=== PATIENT | male | born 1940 | race Caucasian/White ===

== ENCOUNTER 2018-11-09 11:28 | Day surgery (SDC) | payer MEDICARE ==
[~2018-11-09] VITALS: Ht 182.9 cm; Wt 109.4 kg
[~2018-11-09 11:28] MED LIST: ALLO300 PO; ASPI81CH PO; Adult Low Dose81 MG PO; CARV6.25; CARV6.25 PO; COLC.6 PO; ENTRESTO 24 MG1 EACH PO; EZET10-20 PO; EZETIMIBE-SIMV1 EAC1 PO; FENO145 PO; HCTZ; HYDACE5 PO; HYDCHL25 PO; HYDR1TAB94 PO; NYST100SU MT; ONDA4ODT MM; SLO NIACIN; TAMS.4ER PO; UBID10 PO
--- NOTE | 2018-11-09 13:11 | NUR ---
11/09/18 1311 Eduard Ortega 1ST IV ATTEMPT IN RFT UNSUCCESSFUL, CAT 2ND IV ATTEMPT IN LFT UNSUCCESSFUL, ORSCHELI 3RD IV ATTEMPT IN RFT SUCCESSFUL, ORSHEATH
--- NOTE | 2018-11-09 14:39 | NUR ---
11/09/18 1435 Leesa Gomes @[id number] assumed care of pt from [facility] after receiving report
== END 2018-11-09 14:35 | disposition home or self-care (01) ==
LOC: ORSCSDS 11:28
PROVIDERS: Orthopaedic Surgery
PROC: 01N54ZZ Release Median Nerve, Percutaneous Endoscopic Approach (ICD-10-PCS; principal; 2018-11-09 12:30)
DX: G56.02 Carpal tunnel syndrome, left upper limb (principal); I25.10 Atherosclerotic heart disease of native coronary artery without angina pectoris; I10 Essential (primary) hypertension; E66.9 Obesity, unspecified; E78.5 Hyperlipidemia, unspecified; Z68.32 Body mass index [BMI] 32.0-32.9, adult; Z87.891 Personal history of nicotine dependence; Z79.899 Other long term (current) drug therapy; Z79.82 Long term (current) use of aspirin
CPT/HCPCS: J0171; J0690; J2250; J7120

== ENCOUNTER → 2019-07-31 | Outpatient (CLI) | payer MEDICARE ==
[2019-07-31 09:16] LABS: Source, Urine Clean Catch
[2019-07-31 10:10] LABS: Bilirubin, Urine Neg (Neg); Blood, Urine Neg (Neg); Glucose Qualitative, Urine Neg (Neg); Ketones, Urine Neg (Neg); Leukocyte Esterase, Urine Neg (Neg); Nitrite, Urine Neg (Neg); Protein, Urine Neg (Neg); Specific Gravity, Urine 1.015 (1.003-1.022); Urobilinogen, Urine NORM (Normal)
[2019-07-31 10:25] LABS: Appearance, Urine Clear (Clear); Color, Urine Yellow (P-Yellow)
== END | disposition home or self-care (01) ==
LOC: LAB SHORT 09:15 → OLS 09:15
PROVIDERS: Internal Medicine
DX: R31.9 Hematuria, unspecified (principal)
CPT/HCPCS: 81003

== ENCOUNTER 2019-10-16 01:18 | Emergency (ER) | payer MEDICARE ==
[~2019-10-16] VITALS: Ht 182.9 cm; Wt 99.8 kg
[2019-10-16 03:39] LABS: Source, Urine Clean Catch
[2019-10-16 03:43] LABS: Appearance, Urine Hazy (Clear); Bilirubin, Urine Neg (Neg); Blood, Urine 5+ (Neg); Color, Urine Yellow (P-Yellow); Glucose Qualitative, Urine Neg (Neg); Ketones, Urine 1+ (Neg); Leukocyte Esterase, Urine 3+ (Neg); Nitrite, Urine Neg (Neg); Protein, Urine 2+ (Neg); Specific Gravity, Urine 1.015 (1.003-1.022); Urobilinogen, Urine NORM (Normal)
[2019-10-16 03:48] LABS: BASOPHILS ABSOLUTE AUTO 0.04 K/mm3 (0.00-0.23); BASOPHILS PERCENT AUTO 1 % (0-2); EOSINOPHILS ABSOLUTE AUTO 0.05 K/mm3 (0.00-0.68); EOSINOPHILS PERCENT AUTO 1 % (0-6); Hematocrit 48.3 % (37.0-53.0); Hemoglobin 15.8 g/dL (13.5-17.5); IMMATURE GRAN ABSOLUTE AUTO 0.05 K/mm3 (0.00-0.10); IMMATURE GRAN PERCENT AUTO 1 % (0-1); LYMPHOCYTES ABSOLUTE AUTO 0.54 K/mm3 (0.84-5.20); LYMPHOCYTES PERCENT AUTO 6 % (21-46); MONOCYTES ABSOLUTE AUTO 0.16 K/mm3 (0.16-1.47); MONOCYTES PERCENT AUTO 2 % (4-13); Mean Corpuscular HGB 29.8 pg (26.0-34.0); Mean Corpuscular HGB Conc 32.7 g/dL (31.5-36.5); Mean Corpuscular Volume 91 fL (80-100); NEUTROPHILS ABSOLUTE AUTO 7.63 K/mm3 (1.96-9.15); NEUTROPHILS PERCENT AUTO 90 % (41-73); Platelet Count 240 K/mm3 (150-400); RDW Coefficient Variation 14.2 % (11.7-14.2); RDW Standard Deviation 47.8 fL (35.1-46.3); Red Blood Cell Count 5.31 M/mm3 (4.30-5.90); White Blood Cell Count 8.47 K/mm3 (4.00-11.30)
[2019-10-16 03:52] LABS: Bacteria Many /hpf; Red Blood Cells, Urine 0-2 /hpf (0-2); Squamous Epithelial Cells Not Seen /hpf (Few); White Blood Cells, Urine 50-100 /hpf (0-5)
[2019-10-16 04:08] LABS: Alanine Aminotransfer (ALT/SGP 28 U/L (12-78); Albumin, Blood 3.6 g/dL (3.4-5.0); Albumin/Globulin Ratio 1.1 (0.8-1.8); Alk Phos 73 U/L (50-136); Anion Gap 6 mmol/L (6-16); Aspartate Aminotrans (AST/SGOT 17 U/L (12-37); Bilirubin, Total 1.1 mg/dL (0.1-1.0); Blood Urea Nitrogen 17 mg/dL (8-24); Bun/Creatinine Ratio 18.6 (12.0-20.0); CO2, Blood 25 mmol/L (21-32); Calcium, Blood 9.3 mg/dL (8.5-10.1); Chloride, Blood 109 mmol/L (98-108); Creatinine, Blood 0.92 mg/dL (0.60-1.20); Globulin, Blood 3.4 g/dL (2.2-4.0); Glomerular Filtration Rate >60 (60-); Glucose, Blood 126 mg/dL (70-99); Potassium, Blood 4.1 mmol/L (3.5-5.5); Sodium, Blood 140 mmol/L (136-145)
[2019-10-16] MEDS ORDERED: CEFP200 PO (04:37)
== END 2019-10-16 05:37 | disposition home or self-care (01) ==
LOC: ER 01:18
PROVIDERS: Emergency Medicine
DX: N39.0 Urinary tract infection, site not specified (principal); Z88.5 Allergy status to narcotic agent; Z88.1 Allergy status to other antibiotic agents; Z88.8 Allergy status to other drugs, medicaments and biological substances; Z79.82 Long term (current) use of aspirin; Z79.899 Other long term (current) drug therapy; Z79.2 Long term (current) use of antibiotics; I10 Essential (primary) hypertension; Z87.891 Personal history of nicotine dependence
CPT/HCPCS: 36415; 80053; 81001; 85025; 87077; 87086; 87186; 96365; 99284-25; J0696

== ENCOUNTER 2019-12-05 09:36 | Day surgery (SDC) | payer MEDICARE ==
[~2019-12-05] VITALS: Ht 182.9 cm; Wt 97.5 kg
[~2019-12-05 09:36] MED LIST changes: +Aspir 8181 MG PO; +CEFP200 PO; +ENTRESTO 49 MG1 EAC3; +EZETIMIBE-SIMV1 EAC4 PO; +FLOMAX0.4 MG PO; +Fibercon625 MG PO; +MAGNESIUM OXID500 MG PO
--- NOTE | 2019-12-05 10:29 | NUR ---
12/05/19 1029 Yadira Damon PT USED PLENVU PREP
--- NOTE | 2019-12-05 11:21 | NUR ---
12/05/19 1121 Crys Mcelroy PT WANTED TO WATCH PROCEDURE. OK PER DR. ROBLEDO.
--- NOTE | 2019-12-05 11:46 | NUR ---
12/05/19 1145 Nohemi Hodge DRAWN PER DR. ROBLEDO'S ORDER AND SENT TO LAB.
[2019-12-06 09:11] LABS: IMMUNOGLOBULIN A, QN, SERUM 194 mg/dL (61-437)
[2019-12-07 18:10] LABS: ENDOMYSIAL ANTIBODY IGA Negative (Negative)
== END 2019-12-05 11:49 | disposition home or self-care (01) ==
LOC: ORSCSDS 09:36
PROVIDERS: Internal Medicine Gastroenterology
PROC: 0DBH8ZX Excision of Cecum, Via Natural or Artificial Opening Endoscopic, Diagnostic (ICD-10-PCS; principal; 2019-12-05 10:45)
DX: Z12.11 Encounter for screening for malignant neoplasm of colon (principal); Z86.010 Personal history of colon polyps; K57.30 Diverticulosis of large intestine without perforation or abscess without bleeding; K64.8 Other hemorrhoids; E66.9 Obesity, unspecified; Z68.30 Body mass index [BMI] 30.0-30.9, adult; Z87.891 Personal history of nicotine dependence; Z79.82 Long term (current) use of aspirin; Z79.899 Other long term (current) drug therapy
CPT/HCPCS: 82784; 82947; 83516; 86255; 88305; J2704; J7120

== ENCOUNTER → 2019-12-12 | Outpatient (CLI) | payer MEDICARE ==
[2019-12-12 08:41] LABS: Source, Urine Clean Catch
[2019-12-12 10:24] LABS: Bilirubin, Urine Neg (Neg); Blood, Urine 3+ (Neg); Glucose Qualitative, Urine Neg (Neg); Ketones, Urine Neg (Neg); Leukocyte Esterase, Urine 3+ (Neg); Nitrite, Urine Neg (Neg); Protein, Urine Neg (Neg); Specific Gravity, Urine 1.005 (1.003-1.022); Urobilinogen, Urine NORM (Normal); pH, Urine 6.5 (5.0-8.0)
[2019-12-12 10:37] LABS: Appearance, Urine Hazy (Clear); Color, Urine Yellow (P-Yellow)
[2019-12-12 10:39] LABS: White Blood Cells, Urine 25-50 /hpf (0-5)
[2019-12-12 10:40] LABS: Bacteria Few /hpf; Squamous Epithelial Cells Rare /hpf (Few)
== END | disposition home or self-care (01) ==
LOC: LAB SHORT 08:39 → LAB 08:39 → EDSTATUS 11-13 08:25 → LAB FUT 11-13 08:25
PROVIDERS: Internal Medicine
DX: N39.0 Urinary tract infection, site not specified (principal)
CPT/HCPCS: 81001

== ENCOUNTER → 2019-12-25 | Outpatient (CLI) | payer MEDICARE ==
[2019-12-25 10:09] LABS: Source, Urine Clean Catch
[2019-12-25 13:11] LABS: Appearance, Urine Hazy (Clear); Bilirubin, Urine Neg (Neg); Blood, Urine 5+ (Neg); Color, Urine Yellow (P-Yellow); Glucose Qualitative, Urine Neg (Neg); Ketones, Urine Neg (Neg); Leukocyte Esterase, Urine 2+ (Neg); Nitrite, Urine Neg (Neg); Protein, Urine 1+ (Neg); Specific Gravity, Urine 1.015 (1.003-1.022); Urobilinogen, Urine NORM (Normal)
[2019-12-25 13:28] LABS: Red Blood Cells, Urine 25-50 /hpf (0-2); White Blood Cells, Urine TNTC /hpf (0-5)
[2019-12-25 13:30] LABS: Bacteria Few /hpf; Squamous Epithelial Cells Not Seen /hpf (Few)
== END | disposition home or self-care (01) ==
LOC: LAB 10:09 → LAB SHORT 10:09 → LAB FUT 12-11 08:45 → EDSTATUS 12-11 08:45
PROVIDERS: Internal Medicine
DX: N39.0 Urinary tract infection, site not specified (principal)
CPT/HCPCS: 81001

== ENCOUNTER 2020-11-05 08:00 | Day surgery (SDC) | payer MEDICARE ==
[~2020-11-05] VITALS: Ht 182.9 cm; Wt 97.8 kg
[~2020-11-05 08:00] MED LIST changes: +ASPIR 8181 M1 PO; +Coq-1030 MG PO; +Norco 5-325 Ta1 EACH PO
--- NOTE | 2020-11-05 08:57 | NUR ---
11/05/20 0857 Antonia Lizarraga LATE ENTRY: TETRACAINE AND PLEDGET PLACED IN LEFT EYE BY [facility].G.
== END 2020-11-05 09:40 | disposition home or self-care (01) ==
LOC: ORSCSDS 08:00
PROVIDERS: Ophthalmology
PROC: 08RK3JZ Replacement of Left Lens with Synthetic Substitute, Percutaneous Approach (ICD-10-PCS; principal; 2020-11-05 09:00)
DX: H25.11 Age-related nuclear cataract, right eye (principal); H21.81 Floppy iris syndrome; I10 Essential (primary) hypertension; Z79.82 Long term (current) use of aspirin; Z79.899 Other long term (current) drug therapy
CPT/HCPCS: J2001; J2250; J3010; J3301; J7040; V2632

== ENCOUNTER 2021-01-28 08:13 | Day surgery (SDC) | payer MEDICARE ==
[~2021-01-28] VITALS: Ht 182.9 cm; Wt 98.0 kg
[2021-01-28] MEDS ORDERED: ALLO300 (08:40)
[2021-01-28] MEDS ORDERED: EZETIMIBE-SIMV1 EAC4 (08:41)
[2021-01-28] MEDS ORDERED: Isosorbide Mono30 MG (08:42)
--- NOTE | 2021-01-28 08:48 | NUR ---
01/28/21 0848 Antonia Lizarraga TETRACAINE AND PLEDGET PLACED IN RIGHT EYE BY [facility].G
== END 2021-01-28 10:13 | disposition home or self-care (01) ==
LOC: ORSCSDS 08:13
PROVIDERS: Ophthalmology
PROC: 08RJ3JZ Replacement of Right Lens with Synthetic Substitute, Percutaneous Approach (ICD-10-PCS; principal; 2021-01-28 09:30)
DX: H25.11 Age-related nuclear cataract, right eye (principal); H21.81 Floppy iris syndrome; I10 Essential (primary) hypertension; I25.2 Old myocardial infarction; I25.10 Atherosclerotic heart disease of native coronary artery without angina pectoris; E78.5 Hyperlipidemia, unspecified; Z79.899 Other long term (current) drug therapy; Z79.82 Long term (current) use of aspirin
CPT/HCPCS: J2001; J2250; J3010; J3301; J7040; V2632

== ENCOUNTER → 2021-03-06 | Outpatient (CLI) | payer MEDICARE ==
[~2021-03-06] MED LIST changes: +ALLO300; +EZETIMIBE-SIMV1 EAC4; +Isosorbide Mono30 MG
[2021-03-06 14:56] LABS: Adenovirus F 40/41 Not Detected (NOT DETECT); Astrovirus Not Detected (NOT DETECT); Campylobacter Sp Not Detected (NOT DETECT); Cryptosporidium Not Detected (NOT DETECT); Cyclospora Cayetanensis Not Detected (NOT DETECT); E. Coli O157 Not Detected (NOT DETECT); Entamoeba Histolytica Not Detected (NOT DETECT); Enteroaggregative E. coli-EAEC Not Detected (NOT DETECT); Enteropathogenic E. coli-EPEC Not Detected (NOT DETECT); Enterotoxigenic E. coli-ETEC Not Detected (NOT DETECT); Giardia Lamblia Not Detected (NOT DETECT); Norovirus GI/GII Not Detected (NOT DETECT); Plesiomonas Shigelloides Not Detected (NOT DETECT); Rotavirus A Not Detected (NOT DETECT); Salmonella Sp Not Detected (NOT DETECT); Sapovirus Not Detected (NOT DETECT); Shiga Toxin-prod E. coli-STEC Not Detected (NOT DETECT); Shigella/Enteroin E. coli-EIEC Not Detected (NOT DETECT); Vibrio Cholerae Not Detected (NOT DETECT); Vibrio Sp Not Detected (NOT DETECT); Yersinia Enterocolitica Not Detected (NOT DETECT)
== END | disposition home or self-care (01) ==
LOC: LAB 11:33 → LAB SHORT 11:33
PROVIDERS: Internal Medicine
DX: R19.7 Diarrhea, unspecified (principal)
CPT/HCPCS: 0097U